=== PATIENT | male | born 1955 | race Caucasian/White ===

== ENCOUNTER 2017-08-18 15:55 | Outpatient (CLI) | payer OTHER | END 2017-08-18 16:08 | disposition home or self-care (01) | LOC: SLEEP 15:55 | PROVIDERS: ATTEND Nurse Practitioner Family | DX: G47.33 Obstructive sleep apnea (adult) (pediatric) (principal); R06.83 Snoring; I10 Essential (primary) hypertension ==

== ENCOUNTER → 2018-07-27 | Outpatient (CLI) | payer OTHER ==
[~2018-07-27] MED LIST: ACHD5005 PO; ALLO300T2 PO; KETO10TA PO; LISI-552 PO
--- NOTE | 2018-07-27 10:30 | Diagnostic Imaging Report ---
INDICATION: Left rib injury from a fall FINDINGS: There are 2 fractures of the left 9th rib and 2 fractures of the left 10th rib. The proximal fractures in the mid posterior region are minimally displaced. The fractures that are more anterolateral have superior displacement of the distal component. There is no effusion or pneumothorax. IMPRESSION: There are 2 fractures present in each of the left 9th and left 10th ribs. Dictated by: Dictated on workstation # [id number]
== END ==
LOC: RAD FS 10:05
PROVIDERS: ATTEND Physician Assistant
DX: S22.42XA Multiple fractures of ribs, left side, initial encounter for closed fracture (principal); S30.92XA Unspecified superficial injury of abdominal wall, initial encounter; W19.XXXA Unspecified fall, initial encounter
CPT/HCPCS: 71100

== ENCOUNTER 2018-07-28 14:32 | Inpatient (IN) | payer OTHER ==
[~2018-07-28] VITALS: Ht 172.7 cm; Wt 96.8 kg
--- OUTSIDE RECORDS SUMMARY | 2018-07-28 14:38 | XMS REPORT | Continuity of Care Document ---
Author Organization Unknown Address Unknown Allergies There is no data. Medications There is no data. Problems There is no data. Procedures There is no data. Results There is no data. Encounters ACCT No. Visit Date/Time Discharge Status Pt. Type Provider Facility Loc./Unit Complaint [id number] 07/27/2018 09:40:00 ACT Outpatient [facility]
--- NOTE | 2018-07-28 14:42 | ED Respiratory ---
General Chief Complaint: Respiratory Problems Stated Complaint: FALL - SOB Source: patient, family, RN notes reviewed, old records Exam Limitations: no limitations History of Present Illness Date Seen by Provider: July 28, 2018 Time Seen by Provider: 14:38 Initial Comments Patient presents c/ c/o worsening dyspnea and left anterior chest pain p/ falling into a hole yesterday morning. Apparently hit the side of the hole across his left chest. Was seen in the clinic and had a x-ray done and was apparently told they would call him c/ the results and further recommendations but he hasn't heard anything up to this point leading to his presentation here. Timing/Duration: yesterday Severity: moderate (8/10) Prior Episodes/Possible Cause: no prior episodes Modifying Factors: Worse With Activity, Worse With Coughing; Improves With Rest Associated Symptoms: denies symptoms (x/ as noted. ), chest pain/soreness, shortness of breath Allergies and Home Medications Allergies Coded Allergies: No Known Drug Allergies (Unverified , 07/28/18) Patient Home Medication List Home Medication List Reviewed: Yes Review of Systems Review of Systems Constitutional: see HPI Respiratory: see HPI, short of breath Cardiovascular: see HPI, chest pain (left) All Other Systems Reviewed Negative Unless Noted: Yes (Negative excepted noted.) Physical Exam Vital Signs - First Documented 07/28/18 14:35 Temp 98.8 Pulse 106 Resp 24 B/P (MAP) 157/93 (114) Pulse Ox 96 O2 Delivery Room Air Capillary Refill : Height: '" Weight: lbs. oz. kg; BMI Method: General Appearance: WD/WN, moderate distress Respiratory: respiratory distress (mild), decreased breath sounds (on left) Cardiovascular: tachycardia Neurologic/Psychiatric: no motor/sensory deficits, alert, oriented x 3, other (obviously uncomfortable) Skin: diaphoresis Progress/Results/Core Measures Suspected Sepsis SIRS Temperature: Pulse: Respiratory Rate: Laboratory Tests 07/28/18 14:49: White Blood Count 13.5H Blood Pressure / Mean: Laboratory Tests 07/28/18 14:49: Creatinine 0.89, INR Comment 1.0, Platelet Count 327, Total Bilirubin 0.7 Results/Orders Lab Results Laboratory Tests Test 07/28/18 14:49 Range/Units White Blood Count 13.5 H 4.3-11.0 10^3/uL Red Blood Count 4.85 4.35-5.85 10^6/uL Hemoglobin 15.2 13.3-17.7 G/DL Hematocrit 44 40-54 % Mean Corpuscular Volume 91 80-99 FL Mean Corpuscular Hemoglobin 31 25-34 PG Mean Corpuscular Hemoglobin Concent 35 32-36 G/DL Red Cell Distribution Width 12.7 10.0-14.5 % Platelet Count 327 130-400 10^3/uL Mean Platelet Volume 8.7 7.4-10.4 FL Neutrophils (%) (Auto) 73 42-75 % Lymphocytes (%) (Auto) 17 12-44 % Monocytes (%) (Auto) 7 0-12 % Eosinophils (%) (Auto) 1 0-10 % Basophils (%) (Auto) 1 0-10 % Neutrophils # (Auto) 9.8 H 1.8-7.8 X 10^3 Lymphocytes # (Auto) 2.3 1.0-4.0 X 10^3 Monocytes # (Auto) 1.0 0.0-1.0 X 10^3 Eosinophils # (Auto) 0.2 0.0-0.3 10^3/uL Basophils # (Auto) 0.1 0.0-0.1 10^3/uL Prothrombin Time 13.5 12.2-14.7 SEC INR Comment 1.0 0.8-1.4 Activated Partial Thromboplast Time 29 24-35 SEC Sodium Level 133 L 135-145 MMOL/L Potassium Level 4.2 3.6-5.0 MMOL/L Chloride Level 93 L 98-107 MMOL/L Carbon Dioxide Level 21 21-32 MMOL/L Anion Gap 19 H 5-14 MMOL/L Blood Urea Nitrogen 9 7-18 MG/DL Creatinine 0.89 0.60-1.30 MG/DL Estimat Glomerular Filtration Rate > 60 BUN/Creatinine Ratio 10 Glucose Level 168 H 70-105 MG/DL Calcium Level 8.9 8.5-10.1 MG/DL Corrected Calcium 8.7 8.5-10.1 MG/DL Magnesium Level 2.1 1.8-2.4 MG/DL Total Bilirubin 0.7 0.1-1.0 MG/DL Aspartate Amino Transf (AST/SGOT) 47 H 5-34 U/L Alanine Aminotransferase (ALT/SGPT) 41 0-55 U/L Alkaline Phosphatase 81 40-136 U/L Troponin T 9 <=15 NG/L Total Protein 7.3 6.4-8.2 GM/DL Albumin 4.3 3.2-4.5 GM/DL Lipase 24 8-78 U/L My Orders Orders - JUNITO PERRY DO Chest Pa/Lat (2 View) (07/28/18 14:34) Ed Iv/Invasive Line Start (07/28/18 14:43) Ekg Tracing (07/28/18 14:43) Monitor-Rhythm Ecg Trace Only (07/28/18 14:43) Cbc With Automated Diff (07/28/18 14:43) Comprehensive Metabolic Panel (07/28/18 14:43) Lipase (07/28/18 14:43) Magnesium (07/28/18 14:43) Protime With Inr (07/28/18 14:43) Partial Thromboplastin Time (07/28/18 14:43) Troponin T (07/28/18 14:43) Ketorolac Injection (Toradol Injection) (07/28/18 14:45) Lactated Ringers (Lr 1000 Ml Iv Solution (07/28/18 15:15) Fentanyl Injection (Sublimaze Injection (07/28/18 15:30) Medications Given in ED Current Medications Medications Dose Ordered Sig/Monty Route Start Time Stop Time Status Last Admin Dose Admin Fentanyl Citrate 50 mcg ONCE ONCE IVP 07/28/18 15:30 07/28/18 15:31 DC 07/28/18 15:20 50 MCG Ketorolac Tromethamine 15 mg ONCE ONCE IVP 07/28/18 14:45 07/28/18 14:48 DC 07/28/18 14:58 15 MG Vital Signs/I&O 07/28/18 14:35 Temp 98.8 Pulse 106 Resp 24 B/P (MAP) 157/93 (114) Pulse Ox 96 O2 Delivery Room Air Capillary Refill : Progress Note : Progress Note Pain improved some c/ Toradol and then Fentanyl. ECG Initial ECG Impression Date: July 28, 2018 Initial ECG Impression Time: 15:09 Initial ECG Rate: 124 Initial ECG Rhythm: S.Tach Initial ECG Impression: Nonspecific Changes Initial ECG Comparisson: No Previous ECG Available (probable left atrial enlargement; Borderline T abnormalities, inferior leads.) Diagnostic Imaging Diagonstic Imaging: Xray Plain Films/CT/US/NM/MRI: chest (left sided hemo/pneumothorax c/ multiple left lower rib fractures.) Reviewed: Discussed w/Radiologist Departure Impression Primary Impression: Hemothorax with pneumothorax, traumatic Additional Impression: Multiple fractures of ribs of left side Disposition: XFER SHT-TRM HOSP Condition: Stable Transfer Time Spoke to Accepting Phy: 15:00 Transfer Progress Notes Discussed patient c/ both Dr. Baldwin (Surgeon) and Richi Rosado APRN and they have accepted the patient in transfer. Transfer Facility: [facility] Method of Transfer: EMS Departure-Patient Inst. Referrals: GINO TORRES MD (PCP/Family) Primary Care Physician JUNITO PERRY DO July 28, 2018 14:42
[2018-07-28] MEDS ORDERED: KETOROLAC 30 MG/ML VIAL IVP ONE (14:45)
[2018-07-28 15:04] LABS: BASOPHILS # (AUTO) 0.1 10^3/uL (0.0-0.1); BASOPHILS % (AUTO) 1 % (0-10); EOSINOPHILS # (AUTO) 0.2 10^3/uL (0.0-0.3); EOSINOPHILS % (AUTO) 1 % (0-10); HEMATOCRIT 44 % (40-54); HEMOGLOBIN 15.2 G/DL (13.3-17.7); LYMPHOCYTES # (AUTO) 2.3 X 10^3 (1.0-4.0); LYMPHOCYTES % (AUTO) 17 % (12-44); MEAN CORPUSCULAR HEMOGLOBIN 31 PG (25-34); MEAN CORPUSCULAR HGB CONC 35 G/DL (32-36); MEAN CORPUSCULAR VOLUME 91 FL (80-99); MEAN PLATELET VOLUME 8.7 FL (7.4-10.4); MONOCYTES % (AUTO) 7 % (0-12); NEUTROPHILS # (AUTO) 9.8 X 10^3 (1.8-7.8); NEUTROPHILS % (AUTO) 73 % (42-75); PLATELET COUNT 327 10^3/uL (130-400); RED CELL DISTRIBUTION WIDTH 12.7 % (10.0-14.5); WHITE BLOOD COUNT 13.5 10^3/uL (4.3-11.0)
[2018-07-28] MEDS ORDERED: LACTATED RINGERS 1,000 ML IV SCH (15:15)
--- NOTE | 2018-07-28 15:15 | Diagnostic Imaging Report ---
EXAMINATION: Two views of the chest. INDICATION: Fall. COMPARISON: Prior rib series from the previous day. FINDINGS: Multiple left inferior rib fractures are again demonstrated with a large degree of adjacent subcutaneous emphysema. These appear to be segmental fractures of the ninth and tenth ribs. There is now a left apical pneumothorax that measures up to 4 cm in thickness with a new air-fluid level suggesting hydropneumothorax. Blood products within the pleural space, given the fractures, could not be excluded. There is no right pneumothorax. The right lung is clear. Heart size is stable. Mediastinal contours are appropriate. IMPRESSION: Unchanged segmental left inferior lateral ninth and tenth rib fractures with new subcutaneous edema within the chest wall. There is a moderate size pneumothorax as well as an air-fluid level that is within the pleural space and may relate to hydropneumothorax or pneumothorax and hemothorax. Findings were called to the [place] and discussed with Dr. Jim. Dictated by: Dictated on workstation # [id number]
[2018-07-28 15:21] LABS: PROTHROMBIN TIME PATIENT 13.5 SEC (12.2-14.7)
--- NOTE | 2018-07-28 15:24 | NUR ---
[facility] here to transport patient.
[2018-07-28] MEDS ORDERED: fentaNYL INJECTION 100 MCG/2 ML AMP IVP ONE (15:30)
[2018-07-28 15:33] LABS: ALKALINE PHOSPHATASE 81 U/L (40-136); BILIRUBIN,TOTAL 0.7 MG/DL (0.1-1.0); BUN/CREATININE RATIO 10; CALCIUM 8.9 MG/DL (8.5-10.1); CARBON DIOXIDE 21 MMOL/L (21-32); CHLORIDE 93 MMOL/L (98-107); CREATININE SERUM 0.89 MG/DL (0.60-1.30); GFR ESTIMATED > 60; GLUCOSE 168 MG/DL (70-105); MAGNESIUM 2.1 MG/DL (1.8-2.4); POTASSIUM 4.2 MMOL/L (3.6-5.0); SODIUM 133 MMOL/L (135-145)
[2018-07-28 15:34] LABS: ALANINE AMINOTRANSFERASE 41 U/L (0-55); ALBUMIN 4.3 GM/DL (3.2-4.5); LIPASE 24 U/L (8-78); TOTAL PROTEIN 7.3 GM/DL (6.4-8.2)
[2018-07-28] MEDS ORDERED: NS IV 1000 ML 1,000 ML IV SCH ×2 (16:35→17:05)
[2018-07-28] MEDS ORDERED: HYDROmorphone 2 MG/ML VIAL (DILAUDID) ONE (16:42)
[2018-07-28] MEDS ORDERED: HYDROmorphone 2 MG/ML VIAL (DILAUDID) IVP ONE (16:55)
[2018-07-28 17:34] LABS: BASOPHILS # (AUTO) 0.1 10^3/uL (0.0-0.1); BASOPHILS % (AUTO) 0 % (0-10); EOSINOPHILS # (AUTO) 0.2 10^3/uL (0.0-0.3); EOSINOPHILS % (AUTO) 1 % (0-10); HEMATOCRIT 37 % (40-54); HEMOGLOBIN 13.1 G/DL (13.3-17.7); LYMPHOCYTES # (AUTO) 2.2 X 10^3 (1.0-4.0); LYMPHOCYTES % (AUTO) 11 % (12-44); MEAN CORPUSCULAR HEMOGLOBIN 31 PG (25-34); MEAN CORPUSCULAR HGB CONC 35 G/DL (32-36); MEAN CORPUSCULAR VOLUME 90 FL (80-99); MONOCYTES # (AUTO) 1.4 X 10^3 (0.0-1.0); MONOCYTES % (AUTO) 7 % (0-12); NEUTROPHILS # (AUTO) 15.4 X 10^3 (1.8-7.8); NEUTROPHILS % (AUTO) 80 % (42-75); PLATELET COUNT 326 10^3/uL (130-400); RED CELL DISTRIBUTION WIDTH 13.2 % (10.0-14.5); WHITE BLOOD COUNT 19.3 10^3/uL (4.3-11.0)
[2018-07-28 17:47] LABS: BAND NEUTROPHILS 2 %; BASOPHILS % (MANUAL) 0 %; EOSINOPHILS % (MANUAL) 1 %; LYMPHOCYTES % (MANUAL) 14 %; MONOCYTES % (MANUAL) 2 %; NEUTROPHILS % (MANUAL) 81 %; RBC MORPH NORMAL
--- NOTE | 2018-07-28 17:55 | Consultation (Surgery) ---
History of Present Illness History of Present Illness Patient Consulted On(tristan/time) 07/28/18 17:50 Time Seen by Provider: 16:41 History of Present Illness Surgery asked to consult regarding Hemo/Pneumothorax. HPI per ED: Patient presents c/ c/o worsening dyspnea and left anterior chest pain p/ falling into a hole yesterday morning. Apparently hit the side of the hole across his left chest. Was seen in the clinic and had a x-ray done and was apparently told they would call him c/ the results and further recommendations but he hasn't heard anything up to this point leading to his presentation here. Timing/Duration: yesterday Severity: moderate (8) Prior Episodes/Possible Cause: no prior episodes Modifying Factors: Worse With Activity, Worse With Coughing; Improves With Rest Associated Symptoms: denies symptoms (x/ as noted. ), chest pain/soreness, shortness of breath When I saw pt he complained of very minimal trouble breathing, mostly because it hurt to take deep breath. He was also complaining of left sided pain and had large bruise on left flank. I ordered CT Chest/Abd/Pelvis. Reviewed Chest xray from [facility] and the one from clinic done Monday. Elected to place chest tube. He denied abdominal pain and no neck or head pain. Allergies and Home Medications Allergies Coded Allergies: No Known Drug Allergies (Unverified , 07/28/18) Home Medications Allopurinol 300 Mg Tablet, 300 MG PO DAILY, (Reported) Lisinopril 20 Mg Tablet, 20 MG PO DAILY, (Reported) Patient Home Medication List Home Medication List Reviewed: Yes Past Scobfbh-Zswdnv-Jbnzlb Hx Patient Social History Alcohol Use: Occasionally Uses Number of Drinks Today: 0 Recreational Drug Use: No Smoking Status: Never a Smoker 2nd Hand Smoke Exposure: No Recent Foreign Travel: No Contact w/Someone Who Travel: No Recent Infectious Disease Expo: No Recent Hopitalizations: No Physical Abuse Screen: No Sexual Abuse: No Seasonal Allergies Seasonal Allergies: No Surgeries History of Surgeries: Yes (Colonoscopy) Respiratory History of Respiratory Disorde: No Cardiovascular History of Cardiac Disorders: Yes Cardiac Disorders: Hypertension Neurological History of Neurological Disord: No Genitourinary History of Genitourinary Disor: No Gastrointestinal History of Gastrointestinal Di: No Musculoskeletal History of Musculoskeletal Dis: Yes Musculoskeletal Disorders: Gout Endocrine History of Endocrine Disorders: No HEENT History of HEENT Disorders: No Cancer History of Cancer: No Psychosocial History of Psychiatric Problem: No Integumentary History of Skin or Integumenta: No Blood Transfusions History of Blood Disorders: No Family Medical History Significant Family History: Cancer (Mother had ovarian cancer), Diabetes (mother), Vascular Disease (father lost leg, pt not sure why) Review of Systems-General Constitutional: No chills, No diaphoresis; malaise, weakness EENTM: No blurred vision, No double vision, No mouth pain, No mouth swelling, No epistaxis Respiratory: No cough; dyspnea on exertion; No hemoptysis; short of breath Cardiovascular: chest pain (secondary to trauma); No edema, No palpitations Gastrointestinal: No abdominal pain, No melena, No nausea, No vomiting Genitourinary: No dysuria, No frequency, No hematuria Musculoskeletal: No joint pain; muscle pain, muscle stiffness Skin: No change in color, No change in hair/nails Psychiatric/Neurological: Denies Anxiety, Denies Depressed, Denies Seizure, Denies Tremors Other pt denies any abnormal bleeding or bruising, no heat or cold intolerance Physical Exam-General Problems Physical Exam Vital Signs Vital Signs - First Documented 07/28/18 07/28/18 14:35 16:00 Temp 98.8 Pulse 106 Resp 24 B/P (MAP) 157/93 (114) Pulse Ox 96 O2 Delivery Room Air O2 Flow Rate 6.00 Capillary Refill : Less Than 3 Seconds General Appearance: WD/WN, moderate distress Eyes: Bilateral Eye PERRL, Bilateral Eye EOMI HEENT: pharynx normal; No scleral icterus (R), No scleral icterus (L), No pale conjunctivae (R), No pale conjunctivae (L) Neck: non-tender, full range of motion, supple, normal inspection Respiratory: normal breath sounds (right lung), no accessory muscle use, re spiratory distress (very mild), decreased breath sounds (Left) Cardiovascular: no murmur, tachycardia Gastrointestinal: normal bowel sounds, non tender, soft, no organomegaly, no pulsatile mass, hernia (small umbilical hernia), other Back: no vertebral tenderness, CVA tenderness (L), muscle spasm Extremities: normal range of motion, non-tender, normal inspection, no pedal edema, no calf tenderness, normal capillary refill Neurologic/Psychiatric: substance abuse prevention coordinator II-XII nml as tested, no motor/sensory deficits, alert, normal mood/affect, oriented x 3 Skin: normal color, warm/dry, ecchymosis (left flank) Lymphatic: no adenopathy (neck, axilla or groin) Data Review Labs Laboratory Tests 07/28/18 14:49: White Blood Count 13.5H, Red Blood Count 4.85, Hemoglobin 15.2, Hematocrit 44, Mean Corpuscular Volume 91, Mean Corpuscular Hemoglobin 31, Mean Corpuscular Hemoglobin Concent 35, Red Cell Distribution Width 12.7, Platelet Count 327, Mean Platelet Volume 8.7, Neutrophils (%) (Auto) 73, Lymphocytes (%) (Auto) 17, Monocytes (%) (Auto) 7, Eosinophils (%) (Auto) 1, Basophils (%) (Auto) 1, Neutrophils # (Auto) 9.8H, Lymphocytes # (Auto) 2.3, Monocytes # (Auto) 1.0, Eosinophils # (Auto) 0.2, Basophils # (Auto) 0.1, Prothrombin Time 13.5, INR Comment 1.0, Activated Partial Thromboplast Time 29, Sodium Level 133L, Potassium Level 4.2, Chloride Level 93L, Carbon Dioxide Level 21, Anion Gap 19H, Blood Urea Nitrogen 9, Creatinine 0.89, Estimat Glomerular Filtration Rate > 60, BUN/Creatinine Ratio 10, Glucose Level 168H, Calcium Level 8.9, Corrected Calcium 8.7, Magnesium Level 2.1, Total Bilirubin 0.7, Aspartate Amino Transf (AST/SGOT) 47H, Alanine Aminotransferase (ALT/SGPT) 41, Alkaline Phosphatase 81, Troponin T 9, Total Protein 7.3, Albumin 4.3, Lipase 24 07/28/18 16:12: White Blood Count 19.3H, Red Blood Count 4.18L, Hemoglobin 13.1L, Hematocrit 37L , Mean Corpuscular Volume 90, Mean Corpuscular Hemoglobin 31, Mean Corpuscular Hemoglobin Concent 35, Red Cell Distribution Width 13.2, Platelet Count 326, Mean Platelet Volume 9.0, Neutrophils (%) (Auto) 80H, Lymphocytes (%) (Auto) 11L , Monocytes (%) (Auto) 7, Eosinophils (%) (Auto) 1, Basophils (%) (Auto) 0, Neutrophils # (Auto) 15.4H, Lymphocytes # (Auto) 2.2, Monocytes # (Auto) 1.4H, Eosinophils # (Auto) 0.2, Basophils # (Auto) 0.1, Neutrophils % (Manual) 81, Lymphocytes % (Manual) 14, Monocytes % (Manual) 2, Eosinophils % (Manual) 1, Basophils % (Manual) 0, Band Neutrophils 2, Blood Morphology Comment NORMAL Assessment/Plan Assessment/Plan Assessment/Plan Hemo/Pneumothorax Rib fx 8-9 SubQ emphysema Pt had CT placed with appx 700ml of blood out, CT chest/abd/pelvis done and no acute process in abd (solid organs appear normal and no fluid in pelvis). KARMA ANGUIANO DO July 28, 2018 17:55
--- NOTE | 2018-07-28 18:09 | Diagnostic Imaging Report ---
PROCEDURE: CT chest, abdomen, and pelvis with contrast. TECHNIQUE: Multiple contiguous axial images were obtained through the chest, abdomen, and pelvis after the administration of intravenous contrast. Auto Exposure Controls were utilized during the CT exam to meet ALARA standards for radiation dose reduction. INDICATION: Pneumothorax, rib fractures. COMPARISON: None. CT CHEST: There is approximately 5-10% anterior left-sided pneumothorax without shift. There is a chest tube in the left apex. There is atelectasis of the left lung base. There is hyperdense pleural effusion likely hemothorax. The tenth, eleventh and twelfth left-sided rib fractures are present. The thoracic spine is intact. The heart and mediastinum are grossly normal. There is no pericardial effusion. No obvious vascular injury is identified. There is minimal atelectasis in the right lung base. Otherwise, the right lung is clear. The sternum is intact. IMPRESSION: 1. Persistent left-sided pneumothorax with hemothorax. Left-sided chest tube is in the left apex. 2. Multiple left posterior lateral rib fractures. CT ABDOMEN/PELVIS: Fatty infiltration of the liver is present. Otherwise, the liver, spleen, pancreas, adrenal glands, kidneys, vascular structures and bowel are normal. There is no free air or free fluid. Distal ureters and urinary bladder are normal. Osseous structures are age-appropriate. IMPRESSION: Negative CT of the abdomen and pelvis. No trauma identified. Dictated by: Dictated on workstation # [id number]
[2018-07-28] MEDS ORDERED: fentaNYL INJECTION 100 MCG/2 ML AMP IVP STA (18:30)
[2018-07-28] MEDS ORDERED: HYDROcodone/APAP 5 MG/325 MG (LORTAB) TAB PO ONE (18:45)
--- OUTSIDE RECORDS SUMMARY | 2018-07-28 19:27 | XMS REPORT | Continuity of Care Document ---
Author Organization Unknown Address Unknown Allergies There is no data. Medications There is no data. Problems There is no data. Procedures There is no data. Results There is no data. Encounters ACCT No. Visit Date/Time Discharge Status Pt. Type Provider Facility Loc./Unit Complaint [id number] 07/27/2018 09:40:00 ACT Outpatient [facility]
--- NOTE | 2018-07-28 19:55 | NUR ---
JUNITO CUENCA admitted to room 432-1, with an admitting diagnosis of PNEUOTHORAX/HEMOTHORAX AND RIB FXS, on 07/28/18 from ED via [facility], accompanied by STAFF.JUNITO CUENCA introduced to surroundings, call light, bed controls, phone, TV, temperature control, lights, meal times, smoking policy, visitor policy, side rail policy, bathrooms and showers. Patient Rights given to patient in the handbook. JUNITO CUENCA verbalizes understanding that [facility] is not responsible for the loss or damage to any personal effects or valuables that are kept in the patients posession during their hospitalization.
[2018-07-28 20:01] VITALS: BP 111/59
[2018-07-28 20:17] LABS: BASOPHILS % (AUTO) 0 % (0-10); EOSINOPHILS # (AUTO) 0.1 10^3/uL (0.0-0.3); EOSINOPHILS % (AUTO) 0 % (0-10); HEMATOCRIT 34 % (40-54); HEMOGLOBIN 11.6 G/DL (13.3-17.7); LYMPHOCYTES # (AUTO) 1.7 X 10^3 (1.0-4.0); LYMPHOCYTES % (AUTO) 10 % (12-44); MEAN CORPUSCULAR HEMOGLOBIN 31 PG (25-34); MEAN CORPUSCULAR HGB CONC 34 G/DL (32-36); MEAN CORPUSCULAR VOLUME 91 FL (80-99); MEAN PLATELET VOLUME 8.6 FL (7.4-10.4); MONOCYTES # (AUTO) 1.1 X 10^3 (0.0-1.0); MONOCYTES % (AUTO) 7 % (0-12); NEUTROPHILS # (AUTO) 13.8 X 10^3 (1.8-7.8); NEUTROPHILS % (AUTO) 83 % (42-75); PLATELET COUNT 264 10^3/uL (130-400); RED CELL DISTRIBUTION WIDTH 13.1 % (10.0-14.5); WHITE BLOOD COUNT 16.7 10^3/uL (4.3-11.0)
[2018-07-28] MEDS ORDERED: 1/2 NS IV SOLUTION 1,000 ML IV PRN (20:23)
[2018-07-28] MEDS ORDERED: ANTACID SUSP 30 ML UDC (MYLANTA) PO PRN (20:30)
[2018-07-28] MEDS ORDERED: LORazepam INJ 2 MG/ML (ATIVAN) VIAL IV PRN (20:30)
[2018-07-28] MEDS ORDERED: D5 1/2 NS 1000 ML IV SOLUTION 1,000 ML IV PRN (20:30)
[2018-07-28] MEDS ORDERED: LORazepam 1 MG (ATIVAN) TAB PO PRN (20:30)
[2018-07-28] MEDS ORDERED: LORazepam INJ 2 MG/ML (ATIVAN) VIAL IM/IV PRN (20:30)
[2018-07-28] MEDS ORDERED: SENNA W/DOCUSATE (SENOKOT S) TABLET PO PRN (20:30)
[2018-07-28 20:37] LABS: ALANINE AMINOTRANSFERASE 35 U/L (0-55); ALBUMIN 3.1 GM/DL (3.2-4.5); ALKALINE PHOSPHATASE 58 U/L (40-136); BILIRUBIN,TOTAL 0.7 MG/DL (0.1-1.0); BUN/CREATININE RATIO 8; CARBON DIOXIDE 19 MMOL/L (21-32); CHLORIDE 103 MMOL/L (98-107); CREATININE SERUM 1.19 MG/DL (0.60-1.30); GFR ESTIMATED > 60; GLUCOSE 142 MG/DL (70-105); POTASSIUM 5.1 MMOL/L (3.6-5.0); SODIUM 133 MMOL/L (135-145); TOTAL PROTEIN 5.6 GM/DL (6.4-8.2)
[2018-07-28] MEDS ORDERED: HYDROcodone/APAP 5 MG/325 MG (LORTAB) TAB PO PRN (21:00)
[2018-07-28] MEDS ORDERED: fentaNYL INJECTION 100 MCG/2 ML AMP IV PRN (21:00)
[2018-07-28] MEDS ORDERED: ONDANSETRON 4 MG/2 ML (SDV) Z0FRAN IV PRN (21:00)
[2018-07-28] MEDS: HYDROcodone/APAP 5 MG/325 MG (LORTAB) TAB PO PRN (21:19)
[2018-07-28] MEDS: NS IV 1000 ML 1,000 ML IV SCH (21:21)
[2018-07-28 23:10] VITALS: BP 108/56
[2018-07-29] MEDS: HYDROcodone/APAP 5 MG/325 MG (LORTAB) TAB PO PRN ×3 (02:30→16:06)
[2018-07-29] MEDS: NS IV 1000 ML 1,000 ML IV SCH ×2 (03:56→10:46)
[2018-07-29 04:00] VITALS: BP 112/56
[2018-07-29 05:21] LABS: BASOPHILS % (AUTO) 0 % (0-10); EOSINOPHILS # (AUTO) 0.1 10^3/uL (0.0-0.3); EOSINOPHILS % (AUTO) 1 % (0-10); HEMATOCRIT 28 % (40-54); HEMOGLOBIN 9.5 G/DL (13.3-17.7); LYMPHOCYTES # (AUTO) 1.7 X 10^3 (1.0-4.0); LYMPHOCYTES % (AUTO) 16 % (12-44); MEAN CORPUSCULAR HEMOGLOBIN 32 PG (25-34); MEAN CORPUSCULAR HGB CONC 34 G/DL (32-36); MEAN CORPUSCULAR VOLUME 92 FL (80-99); MEAN PLATELET VOLUME 8.5 FL (7.4-10.4); MONOCYTES # (AUTO) 0.9 X 10^3 (0.0-1.0); MONOCYTES % (AUTO) 8 % (0-12); NEUTROPHILS % (AUTO) 75 % (42-75); PLATELET COUNT 193 10^3/uL (130-400); WHITE BLOOD COUNT 10.7 10^3/uL (4.3-11.0)
[2018-07-29] MEDS ORDERED: LISI-552 PO (05:35)
[2018-07-29] MEDS ORDERED: ALLO300T2 PO (05:35)
[2018-07-29 05:45] LABS: ALANINE AMINOTRANSFERASE 28 U/L (0-55); ALBUMIN 2.7 GM/DL (3.2-4.5); ALKALINE PHOSPHATASE 50 U/L (40-136); BILIRUBIN,TOTAL 0.6 MG/DL (0.1-1.0); BUN/CREATININE RATIO 12; CALCIUM 7.7 MG/DL (8.5-10.1); CARBON DIOXIDE 19 MMOL/L (21-32); CHLORIDE 106 MMOL/L (98-107); CREATININE SERUM 0.91 MG/DL (0.60-1.30); GFR ESTIMATED > 60; GLUCOSE 145 MG/DL (70-105); POTASSIUM 4.4 MMOL/L (3.6-5.0); SODIUM 134 MMOL/L (135-145); TOTAL PROTEIN 4.7 GM/DL (6.4-8.2)
[2018-07-29 08:00] VITALS: BP 118/59
--- NOTE | 2018-07-29 08:00 | NUR ---
CHEST TUBE PATENT WITH BLOODY DRAINAGE, CHEST TUBE TO LOW WALL SUCTION, DRESSING DRY AND INTACT.
--- NOTE | 2018-07-29 09:23 | Diagnostic Imaging Report ---
INDICATION: Chest tube. TECHNIQUE: Two view chest 9:04 AM CORRELATION STUDY: 07/28/2018 FINDINGS: A left-sided chest tube is in place since prior study. There has been reexpansion and resolution of the previous left-sided pneumothorax. Bibasilar areas of atelectasis and/or infiltrate do persist perhaps slightly increased. Small bilateral pleural effusions left greater than right. Heart size is enlarged but is largely obscured. There is overall limited depth of inspiration. Multiple overlying monitor leads. Subcutaneous gas over the left chest and abdominal wall. Several displaced left-sided rib fractures. IMPRESSION: 1. Reexpansion and resolution of the previous left-sided pneumothorax post chest tube placement. 2. Combination of atelectasis and/or infiltrate along with effusions lung bases left greater than right appear slightly increased in severity. Dictated by: Dictated on workstation # [id number]
--- NOTE | 2018-07-29 11:00 | NUR ---
WALL SUCTION DC TO CHEST TUBE, DRESSING DRY AND INTACT TO LEFT CHEST, NO AIR LEAK, LEFT CHEST AND RIBS BRUISED, USING IS EVERY 2 HOURS, CALL LIGHT WITHIN REACH, FAMILY AT BEDSIDE
[2018-07-29 12:00] VITALS: BP 125/65
--- NOTE | 2018-07-29 13:02 | Progress Note-Post Operative ---
Post-Operative Progess Note Surgeon (s)/Community Service Coordinator (s) Surgeon KARMA ANGUIANO DO Community Service Coordinator: none Pre-Operative Diagnosis Hemo/Pneumothorax Post-Operative Diagnosis same Procedure & Operative Findings Date of Procedure 07/29/18 Procedure Performed/Findings Insertion of chest tube Anesthesia Type local lidocaine Estimated Blood Loss Estimated blood loss (mL): scant Specimens/Packing Specimens Removed 600ml of blood, 450 into pleurovac and appx 150ml onto bed KARMA ANGUIANO DO July 29, 2018 13:02
--- NOTE | 2018-07-29 13:19 | Progress Note ---
Subjective Time Seen by a Provider: 11:38 Subjective/Events-last exam Pt seen and examined, states he is breathing better but still hurts to take deep breath. Pain is well controlled and he is tolerating diet. Review of Systems General: No Chills, No Night Sweats Pulmonary: No Dyspnea, No Cough; Pleuritic Chest Pain Cardiovascular: No: Chest Pain, Palpitations Gastrointestinal: No: Nausea, Vomiting, Abdominal Pain Objective Exam Vital Signs Date Time Temp Pulse Resp B/P (MAP) Pulse Ox O2 Delivery O2 Flow Rate FiO2 07/29/18 08:15 Nasal Cannula 3.00 07/29/18 08:00 99.0 81 18 118/59 (78) 98 Nasal Cannula 3.00 07/29/18 07:00 79 07/29/18 04:00 98.1 85 18 112/56 (74) 95 Nasal Cannula 3.00 07/29/18 01:00 88 07/28/18 23:10 97.7 79 18 108/56 (73) 97 Room Air 07/28/18 21:36 99 07/28/18 21:33 99 Nasal Cannula 3.00 07/28/18 20:35 90 07/28/18 20:01 97.8 86 18 111/59 99 Nasal Cannula 3.00 07/28/18 19:55 Nasal Cannula 5.00 07/28/18 19:12 87 19 101/67 (78) 99 Nasal Cannula 5.00 07/28/18 16:00 118 23 96/70 97 Nasal Cannula 6.00 07/28/18 14:35 98.8 106 24 157/93 (114) 96 Room Air I & O 07/29/18 07:00 Intake Total 3400 ml Output Total 1400 ml Balance 2000 ml Capillary Refill : Less Than 3 Seconds General Appearance: WD/WN, Mild Distress HEENT: PERRL/EOMI, Moist Mucous Membranes Respiratory: Normal Breath Sounds (righ), No Accessory Muscle Use, No Respiratory Distress, Decreased Breath Sounds (left base) Cardiovascular: Regular Rate, Rhythm, No Murmur Gastrointestinal: normal bowel sounds, non tender, soft, no organomegaly, no pulsatile mass, hernia (small umbilical hernia) Skin: Ecchymosis (is larger left flank today, still with some SubQ emphysema) Results Lab Laboratory Tests 07/28/18 14:49: White Blood Count 13.5H, Red Blood Count 4.85, Hemoglobin 15.2, Hematocrit 44, Mean Corpuscular Volume 91, Mean Corpuscular Hemoglobin 31, Mean Corpuscular Hemoglobin Concent 35, Red Cell Distribution Width 12.7, Platelet Count 327, Mean Platelet Volume 8.7, Neutrophils (%) (Auto) 73, Lymphocytes (%) (Auto) 17, Monocytes (%) (Auto) 7, Eosinophils (%) (Auto) 1, Basophils (%) (Auto) 1, Neutrophils # (Auto) 9.8H, Lymphocytes # (Auto) 2.3, Monocytes # (Auto) 1.0, Eosinophils # (Auto) 0.2, Basophils # (Auto) 0.1, Prothrombin Time 13.5, INR Comment 1.0, Activated Partial Thromboplast Time 29, Sodium Level 133L, Potassium Level 4.2, Chloride Level 93L, Carbon Dioxide Level 21, Anion Gap 19H, Blood Urea Nitrogen 9, Creatinine 0.89, Estimat Glomerular Filtration Rate > 60, BUN/Creatinine Ratio 10, Glucose Level 168H, Calcium Level 8.9, Corrected Calcium 8.7, Magnesium Level 2.1, Total Bilirubin 0.7, Aspartate Amino Transf (AST/SGOT) 47H, Alanine Aminotransferase (ALT/SGPT) 41, Alkaline Phosphatase 81, Troponin T 9, Total Protein 7.3, Albumin 4.3, Lipase 24 07/28/18 16:12: White Blood Count 19.3H, Red Blood Count 4.18L, Hemoglobin 13.1L, Hematocrit 37L , Mean Corpuscular Volume 90, Mean Corpuscular Hemoglobin 31, Mean Corpuscular Hemoglobin Concent 35, Red Cell Distribution Width 13.2, Platelet Count 326, Mean Platelet Volume 9.0, Neutrophils (%) (Auto) 80H, Lymphocytes (%) (Auto) 11L , Monocytes (%) (Auto) 7, Eosinophils (%) (Auto) 1, Basophils (%) (Auto) 0, Neutrophils # (Auto) 15.4H, Lymphocytes # (Auto) 2.2, Monocytes # (Auto) 1.4H, Eosinophils # (Auto) 0.2, Basophils # (Auto) 0.1, Neutrophils % (Manual) 81, Lymphocytes % (Manual) 14, Monocytes % (Manual) 2, Eosinophils % (Manual) 1, Basophils % (Manual) 0, Band Neutrophils 2, Blood Morphology Comment NORMAL 5/18/19 20:15: White Blood Count 16.7H, Red Blood Count 3.73L, Hemoglobin 11.6L, Hematocrit 34L , Mean Corpuscular Volume 91, Mean Corpuscular Hemoglobin 31, Mean Corpuscular Hemoglobin Concent 34, Red Cell Distribution Width 13.1, Platelet Count 264, Mean Platelet Volume 8.6, Neutrophils (%) (Auto) 83H, Lymphocytes (%) (Auto) 10L , Monocytes (%) (Auto) 7, Eosinophils (%) (Auto) 0, Basophils (%) (Auto) 0, Neutrophils # (Auto) 13.8H, Lymphocytes # (Auto) 1.7, Monocytes # (Auto) 1.1H, Eosinophils # (Auto) 0.1, Basophils # (Auto) 0.0, Sodium Level 133L, Potassium Level 5.1H, Chloride Level 103, Carbon Dioxide Level 19L, Anion Gap 11, Blood Urea Nitrogen 10, Creatinine 1.19, Estimat Glomerular Filtration Rate > 60, BUN/Creatinine Ratio 8, Glucose Level 142H, Calcium Level 8.0L, Corrected Calcium 8.7, Total Bilirubin 0.7, Aspartate Amino Transf (AST/SGOT) 42H, Alanine Aminotransferase (ALT/SGPT) 35, Alkaline Phosphatase 58, Total Protein 5.6L, Albumin 3.1L 07/29/18 05:06: White Blood Count 10.7, Red Blood Count 3.01L, Hemoglobin 9.5L, Hematocrit 28L, Mean Corpuscular Volume 92, Mean Corpuscular Hemoglobin 32, Mean Corpuscular Hemoglobin Concent 34, Red Cell Distribution Width 13.0, Platelet Count 193, Mean Platelet Volume 8.5, Neutrophils (%) (Auto) 75, Lymphocytes (%) (Auto) 16, Monocytes (%) (Auto) 8, Eosinophils (%) (Auto) 1, Basophils (%) (Auto) 0, Neutrophils # (Auto) 8.0H, Lymphocytes # (Auto) 1.7, Monocytes # (Auto) 0.9, Eosinophils # (Auto) 0.1, Basophils # (Auto) 0.0, Sodium Level 134L, Potassium Level 4.4, Chloride Level 106, Carbon Dioxide Level 19L, Anion Gap 9, Blood Urea Nitrogen 11, Creatinine 0.91, Estimat Glomerular Filtration Rate > 60, BUN/Creatinine Ratio 12, Glucose Level 145H, Calcium Level 7.7L, Corrected Calcium 8.7, Total Bilirubin 0.6, Aspartate Amino Transf (AST/SGOT) 32, Alanine Aminotransferase (ALT/SGPT) 28, Alkaline Phosphatase 50, Total Protein 4.7L, Albumin 2.7L Assessment/Plan Assessment/Plan Assessment/Plan Hemo/Pneumothorax Rib fx 8-[address] with mostly serous but pink output, has a totall of 1100ml in pleurovac; with no airleak. Placed pleurovac on waterseal only and told pt he must use IS. Ch est xray from today looks good with reexpansion of lung. Will order CXR for tomorrow. Pt told plan of water seal, clamp and then pull CT as long as no pneumothorax. Body will absorb any blood that doesn't drain into pleurovac. KARMA ANGUIANO DO July 29, 2018 13:18
[2018-07-29 16:00] VITALS: BP 134/69
[2018-07-29] MEDS: KETOROLAC 30 MG/ML VIAL IVP PRN (17:23)
[2018-07-29 17:40] VITALS: BP 140/78
--- NOTE | 2018-07-29 17:41 | NUR ---
C/O BEING SOB, O2 SAT 93 PERCENT ON O2 3 LITERS, DIAPHORETIC, TEMP 99.8 BP 140/78 PULSE 102, CHEST TUBE PATENT, DR ANGUIANO NOTIFIED AND ORDER GIVEN TO REPEAT CHEST X RAY NOW
--- NOTE | 2018-07-29 18:11 | Diagnostic Imaging Report ---
INDICATION: Pain and shortness of breath with fever. COMPARISON: Comparison made with prior examination from 07/29/2018. FINDINGS: There is bibasilar atelectasis and/or pneumonitis. There are bilateral pleural effusions, left greater than right. There is no pneumothorax. Mediastinum is unremarkable. A left thoracostomy tube remains in place. IMPRESSION: Bibasilar atelectasis and/or pneumonitis and bilateral pleural effusions, left greater than right. Dictated by: Dictated on workstation # [id number]
--- NOTE | 2018-07-29 18:36 | NUR ---
RESULTS OF CHEST X RAY CALLED TO DR ANGUIANO, NO NEW ORDERS
[2018-07-29 19:42] VITALS: BP 119/62
--- NOTE | 2018-07-29 21:38 | OPERATIVE REPORT ---
DATE OF SERVICE: 07/28/2018 PREOPERATIVE DIAGNOSIS: Hemopneumothorax. POSTOPERATIVE DIAGNOSIS: Hemopneumothorax. PROCEDURE: Insertion of chest tube. SURGEON: Rusty Baldwin DO. STORE LEAD: None. ANESTHESIA: Just local lidocaine. BLOOD LOSS: Scant. FLUIDS: None. SPECIMEN: Approximately 600 mL of blood obtained about 450 into the Pleur-evac about 150 on to the bed. PROCEDURE NOTE: After informed consent was obtained, the patient was in the ER bed sterilely prepped and draped in normal fashion. Local lidocaine was used to infiltrate the skin right at the nipple level in the mid axillary line. Made incision with #11 blade, carried down to skin and subcutaneous tissue, deepened down to subcutaneous tissue with blunt dissection and then went up to ribs and then directly over the top of the rib with the curved hemostat pushed into the pleural cavity and immediately got out some air and a rodriguez of blood used a 28-Tanzanian, placed 28-Tanzanian into this opening without any difficulty and hooked up to Pleur-evac then sutured this in place with 0 Prolene and then suturing it into the chest tube. The area was cleaned and dried then placed occlusive dressing and then sponges and tape over this hooked up to Pleur-evac to suction. The patient tolerated the procedure. Job ID: [id number] DocumentID: [id number] Dictated Date: 07/29/2018 13:02:10 Forming Machine Adjuster Date: 07/29/2018 21:37:40 Dictated By: RUSTY BALDWIN DO
[2018-07-29] MEDS: fentaNYL INJECTION 100 MCG/2 ML AMP IV PRN (22:29)
[2018-07-30 00:06] VITALS: BP 138/64
[2018-07-30] MEDS: KETOROLAC 30 MG/ML VIAL IVP PRN ×2 (04:07→18:33)
[2018-07-30 04:34] VITALS: BP 128/60
[2018-07-30] MEDS: HYDROcodone/APAP 5 MG/325 MG (LORTAB) TAB PO PRN ×3 (08:08→18:33)
[2018-07-30 08:18] VITALS: BP 136/64
--- NOTE | 2018-07-30 08:26 | Diagnostic Imaging Report ---
INDICATION: Pneumothorax. PA and lateral views of the chest are obtained. FINDINGS: Since study of one day earlier, there is continued blunting of costophrenic sulci with basilar atelectasis, similar to previous study. No pneumothorax is identified. Left thoracostomy tube remains in stable position. There is no significant midline shift. There are multiple lower left rib fractures similar to previous study. IMPRESSION: Basilar atelectasis and/or pneumonitis with unchanged bilateral pleural fluid and/or thickening. There is no evidence of significant pneumothorax. Dictated by: Dictated on workstation # [id number]
[2018-07-30] MEDS ORDERED: ALLOPURINOL 300 MG (ZYLOPRIM) TAB PO SCH (09:00)
[2018-07-30] MEDS ORDERED: PATIENT MAY USE OWN MEDS, ALL MC SCH (09:00)
[2018-07-30] MEDS ORDERED: lisINopril 20 MG (PRINIVIL) TABLET PO SCH (09:00)
[2018-07-30 12:00] VITALS: BP 158/74
--- NOTE | 2018-07-30 13:34 | Progress Note ---
Subjective Time Seen by a Provider: 10:41 Subjective/Events-last exam Pt seen and examined, states he feels much better than yesterday. Denies SOB, just hurts to take deep breaths. Tolerating diet. Review of Systems General: No Chills, No Night Sweats Pulmonary: No Dyspnea, No Cough Cardiovascular: No: Chest Pain, Palpitations Objective Exam Vital Signs Date Time Temp Pulse Resp B/P (MAP) Pulse Ox O2 Delivery O2 Flow Rate FiO2 07/30/18 12:00 99.0 90 20 158/74 (102) 93 Room Air 0.00 07/30/18 08:18 99.2 84 21 136/64 (88) 94 Nasal Cannula 3.00 07/30/18 07:23 92 Nasal Cannula 3.00 07/30/18 07:00 79 07/30/18 04:34 99.5 87 18 128/60 (82) 96 Nasal Cannula 3.00 07/30/18 01:00 83 07/30/18 00:06 98.5 83 18 138/64 (88) 98 Nasal Cannula 3.00 07/29/18 23:50 Nasal Cannula 3.00 07/29/18 20:00 Nasal Cannula 3.00 07/29/18 19:42 99.1 90 18 119/62 (81) 94 Nasal Cannula 3.00 07/29/18 19:00 94 07/29/18 17:40 99.8 102 24 140/78 (98) 93 Nasal Cannula 07/29/18 16:00 99.4 98 20 134/69 (90) 96 Nasal Cannula 3.00 I & O 07/30/18 07:00 Intake Total 3340 ml Output Total 2935 ml Balance 405 ml Capillary Refill : Less Than 3 Seconds General Appearance: No Apparent Distress, WD/WN HEENT: PERRL/EOMI, Moist Mucous Membranes Respiratory: Normal Breath Sounds (righ), No Accessory Muscle Use, No Respiratory Distress, Decreased Breath Sounds (left base) Cardiovascular: Regular Rate, Rhythm, No Murmur Gastrointestinal: normal bowel sounds, non tender, soft, no organomegaly, no pulsatile mass, hernia (small umbilical hernia) Skin: Ecchymosis (is larger left flank today, still with some SubQ emphysema) Assessment/Plan Assessment/Plan Assessment/Plan Hemo/Pneumothorax Rib fx 8-[address] drainage still serous only 100ml more in pleurovac today; with no airleak. Clamped pleurovac and will get chest xray today at 1800. CXR from this am looks better than yesterday with no pneumothorax. Will take pt off O2 and recheck pulse ox. KARMA ANGUIANO DO July 30, 2018 13:34
[2018-07-30] MEDS: fentaNYL INJECTION 100 MCG/2 ML AMP IV PRN ×2 (13:50→20:45)
--- NOTE | 2018-07-30 15:57 | NUR ---
Initial visit with pt and his significant other, Kelsi, from [place]. Pt goes by "Bill." Pt said that he hopes to return to work tomorrow. Kelsi expressed preference for him to rest and recover.
[2018-07-30 15:59] VITALS: BP 137/74
--- NOTE | 2018-07-30 19:16 | Diagnostic Imaging Report ---
INDICATION: Hemothorax. FINDINGS: PA and lateral views of the chest are obtained with comparison made to study of earlier in the day. Chest tube is reportedly clamped and there is no evidence of recurrent pneumothorax. Basilar atelectasis and pleural fluid have not significantly changed. IMPRESSION: Continued basilar atelectasis and pleural fluid without evidence of recurrent pneumothorax. Dictated by: Dictated on workstation # [id number]
[2018-07-30 20:06] VITALS: BP 135/76
[2018-07-31] VITALS: BP 131/73
[2018-07-31] MEDS: fentaNYL INJECTION 100 MCG/2 ML AMP IV PRN ×2 (01:58→07:49)
[2018-07-31 04:49] VITALS: BP_SYST 130; BP_SYST 171; BP_DIAS 74; BP_DIAS 81
[2018-07-31] MEDS: KETOROLAC 30 MG/ML VIAL IVP PRN (07:48)
[2018-07-31 08:00] VITALS: BP 134/74
[2018-07-31] MEDS ORDERED: lisINopril 20 MG (PRINIVIL) TABLET PO SCH (09:00)
[2018-07-31] MEDS ORDERED: ALLOPURINOL 300 MG (ZYLOPRIM) TAB PO SCH (09:00)
[2018-07-31] MEDS: HYDROcodone/APAP 5 MG/325 MG (LORTAB) TAB PO PRN (09:14)
--- NOTE | 2018-07-31 09:42 | Progress Note ---
Subjective Time Seen by a Provider: 09:16 Subjective/Events-last exam Pt seen and examined, not using oxygen and denies trouble breathing. Does have a lot of pain on left side. Review of Systems General: No Chills, No Night Sweats Pulmonary: No Dyspnea, No Cough Cardiovascular: Chest Pain; No: Palpitations Gastrointestinal: No: Nausea, Vomiting Objective Exam Vital Signs Date Time Temp Pulse Resp B/P (MAP) Pulse Ox O2 Delivery O2 Flow Rate FiO2 07/31/18 08:00 98.6 85 17 134/74 (94) 91 Room Air 0.00 07/31/18 07:00 101 07/31/18 04:49 100.4 81 18 130/74 (92) 94 Room Air 07/31/18 01:00 74 07/31/18 00:00 99.8 84 16 131/73 (92) 96 Room Air 07/30/18 20:06 99.7 89 18 135/76 (95) 95 Room Air 07/30/18 20:00 Room Air 07/30/18 19:00 89 07/30/18 15:59 99.5 93 18 137/74 (95) 94 Room Air 07/30/18 12:53 83 07/30/18 12:00 99.0 90 20 158/74 (102) 93 Room Air 0.00 I & O 07/31/18 07:00 Intake Total 2560 ml Output Total 4050 ml Balance -1490 ml Capillary Refill : Less Than 3 SecondsLess Than 3 Seconds General Appearance: No Apparent Distress, WD/WN HEENT: PERRL/EOMI, Moist Mucous Membranes Respiratory: Normal Breath Sounds (righ), No Accessory Muscle Use, No Respiratory Distress, Decreased Breath Sounds (left base) Cardiovascular: Regular Rate, Rhythm, No Murmur Gastrointestinal: normal bowel sounds, non tender, soft, no organomegaly, no pulsatile mass, hernia (small umbilical hernia) Skin: Ecchymosis (is larger left flank today, still with some SubQ emphysema) Assessment/Plan Assessment/Plan Assessment/Plan Hemo/Pneumothorax Rib fx 8-9 SubQ emphysema Will d/c chest tube and d/c home. KARMA ANGUIANO DO July 31, 2018 09:42
[2018-07-31] MEDS ORDERED: KETO10TA PO (09:44)
[2018-07-31] MEDS ORDERED: ACHD5005 PO (09:44)
--- NOTE | 2018-07-31 09:47 | Discharge Inst-Surgical ---
Discharge Inst-Surgical Depart Medication/Instructions New, Converted or Re-Newed RX: RX Given to Pt/Family (and transmitted to pharmacy) Patient Instructions Follow up Appt: Make appointment for 1 week. [phone] Instructions: No lifting greater than 30 pounds. No strenuous activity. May shower in 24 hours, no tub bath or soaking. Use incentive spirometer at home as directed. No Smoking Skin/Wound Care: May remove bandages on and then place bandaid. Symptoms to Report: Appetite Changes, Extremity Discoloration, Numbness/Tingling, Swelling Increased, Bleeding Excessive, Eyesight Changes, Pain Increased, Urine Color Change, Constipation(Persistent), Fever over 101 degree F, Pain/Pressure in chest, Urinating Difficulty, Cough Up/Vomit Blood, Heart Beat Irreg/Pounding, Pain/Pressure in jaw, Cramps in feet or legs, Lightheadedness, Pain/Pressure in shoulder, Diarrhea(Persistent), Memory Changes Suddenly, Questions/Concerns, Weight gain consecutive days, Dizziness/Fainting, Nausea/Vomiting, Shortness of Breath, Weight gain over 2 pounds If questions or concerns contact your physician Or seek help at emergency department. Activity Activity as Tolerated: Yes Driving Instructions: No Driving/Refer to Dr. Jones Discharge Diet: No Restrictions Diet After 24 Hours: Clear Liquid if Nauseous Symptoms to Report to Physicia: Shortness of Breath If Any Problems/Questions/Issu: Contact Your Physician, Go to Emergency Room Skin/Wound Care Infection Signs and Symptoms: Temperature Above 101 F Bathing Instructions: KARMA Sheffield DO July 31, 2018 09:47
[2018-07-31 11:00] VITALS: BP 134/74
--- NOTE | 2018-07-31 11:00 | NUR ---
JUNITO CUENCA demonstrates understanding of discharge instructions and accurately returns instructions upon questioning. Copy of Post-Discharge Instructions given to PT. JUNITO CUENCA is able to manage continuing needs after discharge. Patients belongings returned to PT. Patient discharged from [facility] on 07/31/18 at 11:00. JUNITO CUENCA left floor via W/C, accompanied by STAFF AND PER AUTO.
== END 2018-07-31 11:00 | disposition home or self-care (01) | DRG 200 ==
LOC: EDUNIT# 14:32 → ER FS 14:34 → 4TH 19:24
PROVIDERS: ADMIT Surgery; ATTEND Surgery
PROC: 0W9B30Z Drainage of Left Pleural Cavity with Drainage Device, Percutaneous Approach (ICD-10-PCS; principal; 2018-07-28)
DX: S27.2XXA Traumatic hemopneumothorax, initial encounter (principal); S22.42XA Multiple fractures of ribs, left side, initial encounter for closed fracture; T79.7XXA Traumatic subcutaneous emphysema, initial encounter; I10 Essential (primary) hypertension; M10.9 Gout, unspecified; K42.9 Umbilical hernia without obstruction or gangrene; W17.2XXA Fall into hole, initial encounter
CPT/HCPCS: 32551; 36415; 71046; 71260; 74177; 80053; 83690; 83735; 84484; 85007; 85025; 85027; 85610; 85730; 86850; 86900; 86901; 93005; 93041; 94664; 96361; 96374; 96375; 96376

== ENCOUNTER → 2021-06-18 | Outpatient (CLI) | payer SELFPAY ==
[~2021-06-18] MED LIST changes: -LISI-552 PO; +LISI20TA26 PO
--- NOTE | 2021-06-18 11:05 | Diagnostic Imaging Report ---
INDICATION: Hyperlipidemia. CT coronary calcium score study performed with noncontrast images of the heart with calculation of cardiac score. Images demonstrate the visualized portions of the aorta to be nonaneurysmal. There are a few minimal areas of calcified plaquing in the aorta. There are calcified granulomata in the right hilum. The visualized portions of the lung sandra show some linear scarring in the left base. The entirety of the lung sandra is not included on the study. CT coronary calcium score was 1.3, this with a tiny area of calcification in the LAD. Score was 0 in the remainder of the territories. IMPRESSION: Coronary calcium score of 1.3 as given, for minimal plaque in the LAD territory. There are calcified granulomata in the right hilum. There is some scarring in the left lung base. Dictated by: Dictated on workstation # [id number]
== END ==
LOC: RAD FS 10:01
PROVIDERS: ATTEND Family Medicine
DX: J98.4 Other disorders of lung (principal); L92.8 Other granulomatous disorders of the skin and subcutaneous tissue; E78.2 Mixed hyperlipidemia
CPT/HCPCS: 75571